=== PATIENT | female | born 1970 | race Caucasian/White ===

== ENCOUNTER 2017-09-19 10:08 | Emergency (ER) | payer OTHER, SELFPAY ==
--- NOTE | 2017-09-19 11:33 | ULT ---
ULTRASOUND WITH DOPPLER DUPLEX VENOUS LOWER EXTREMITY RIGHT: HISTORY: A 46-year-old female with right knee pain and swelling. TECHNIQUE: Color flow Doppler, spectral waveform analysis of pulsed Doppler, and montano-scale imaging with pollo ezra and augmentation, were used to evaluate the right common femoral, femoral, popliteal, posterior tibial, and superficial femoral, veins; and the proximal portions of the profunda femoral and greater saphenous, veins. FINDINGS: There is normal compressibility, demonstration of blood flow by color Doppler and pulsed Doppler, and response to augmentation, in all interrogated veins. IMPRESSION: Negative. No deep vein thrombosis in the right lower extremity. jn [] POS: KELLI
== END 2017-09-19 11:12 | disposition home or self-care (01) ==
LOC: SCSER 10:08
DX: M79.89 Other specified soft tissue disorders (principal); Z79.899 Other long term (current) drug therapy; Z87.891 Personal history of nicotine dependence